=== PATIENT | female | born 1940 | race Caucasian/White ===

== ENCOUNTER 2017-02-14 13:41 | Emergency (ER) | payer MEDICARE, OTHER ==
[2017-02-14 13:49] VITALS: BP 139/77; PULSE 75; RESP 20; TEMP 97.8; O2SAT 97
--- NOTE | 2017-02-14 14:27 | C.PDOC ---
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 PS HAS CHRONIC KNEE PAIN, LOST BALANCE AND FELL ONTO L SIDE. NO LOC. AMBUL ON SCENE. 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 DENIES TOOTH LOOSE EXAM MILD DIST HEENT +LIP LAC MID UPPER LEFT, NO INVOLVE BEBA BORDER NO ACTIVE BLEED; NO TOOTH FX, SUBLUX, MALOCCLUSION NECK LIMITED ROM DUE TO PAIN; L PARACERV SPASM; NO LS TEND EXT LIMITED ROM L SHOULDER NO DEFORM; DIFFUSE TEND NEURO INTACT - HPI Time Seen by Provider: 02/14/17 14:02 Chief Complaint (Nursing): Abnormal Skin Integrity History Per: Patient History/Exam Limitations: no limitations Injury Occurred (Timing): Just Before Arrival Location Of Injury: Left: Mouth (upper lip laceration ), Neck, Shoulder, Anterior: Mouth Recent travel outside of the [place]: No Past Medical History Reviewed: Historical Data, Nursing Documentation, Vital Signs Vital Signs: Last Vital Signs Temp 97.8 F 02/14/17 13:48 Pulse 75 02/14/17 13:48 Resp 20 02/14/17 13:48 BP 139/77 02/14/17 13:48 Pulse Ox 97 02/14/17 15:26 - Medical History PMH: Arthritis, Diabetes, HTN, Hypothyroidism, Osteoporosis, Rheumatoid Arthritis Surgical History: Appendectomy, Cholecystectomy - [facility] Procedures INJECT/INFUSE NEC (06/02/14) Family History: States: Unknown Family Hx - Social History Hx Tobacco Use: No Hx Alcohol Use: No Hx Substance Use: No - Immunization History Hx Tetanus Toxoid Vaccination: No Hx Influenza Vaccination: No Hx Pneumococcal Vaccination: No Review Of Systems Except As Marked, All Systems Reviewed And Found Negative. Constitutional: Negative for: Fever, Chills Respiratory: Negative for: Cough Gastrointestinal: Negative for: Nausea, Vomiting Musculoskeletal: Positive for: Neck Pain (left sided ), Shoulder Pain (left ) Skin: Positive for: Other (upper lip laceration ). Negative for: Rash Neurological: Negative for: Weakness, Numbness, Headache, Dizziness Physical Exam - Physical Exam Appears: Non-toxic, No Acute Distress Skin: Warm, Dry Head: Normacephalic, Laceration (+LIP LAC MID UPPER LEFT, NO INVOLVE BEBA BORDER NO ACTIVE BLEED; NO TOOTH FX, SUBLUX, MALOCCLUSION) Eye(s): bilateral: Normal Inspection, PERRL, EOMI Ear(s): Bilateral: Normal Nose: Normal Oral Mucosa: Moist Tongue: Normal Appearing Neck: Decreased ROM (DUE TO PAIN ), No Midline Cervical Tenderness, Paracervical Tenderness (LEFT SIDED SPASM ), No Step Off Deformity, Supple Chest: Symmetrical Cardiovascular: Rhythm Regular Respiratory: Normal Breath Sounds, No Rales, No Rhonchi, No Wheezing Gastrointestinal/Abdominal: Soft, No Tenderness Back: No Vertebral Tenderness Extremity: Tenderness (DIFFUSE, LEFT SHOULDER), Capillary Refill (< 2 SEC. ), No Deformity, No Swelling Extremity: Left: Limited ROM To Joint (SHOULDER) Pulses: Left Radial: Normal, Right Radial: Normal Neurological/Psych: Oriented x3, Normal Motor, Normal Sensation, Other (NEURO INTACT) ED Course And Treatment O2 Sat by Pulse Oximetry: 97 (RA) Pulse Ox Interpretation: Normal - Other Rad CERVICAL SPINE X-RAY X-Ray: Interpreted by Me Interpretation: NEGATIVE LEFT SHOULDER X-RAY X-Ray: Interpreted by Me Interpretation: NEGATIVE Laceration - Laceration Repair No standard instances Wound Length (In cm): 1 Description Of Wound: Irregular, Contused Tissue Anesthesia: Lidocaine 1% Wound Examination: Irrigated With Saline, No FB With Wound Exploration Wound Closure: Suture (6.0 prolene) Suture Technique And Material Used: Interrupted Wound Complexity: Simple (1) Disposition Counseled Patient/Family Regarding: Studies Performed, Diagnosis, Need For Followup, Rx Given - Disposition Referrals: Pathology Laboratory Director Service [Outside] [facility] [Provider Group] Disposition: HOME/ ROUTINE Disposition Time: 16:05 Condition: IMPROVED Prescriptions: Amoxicillin [Amoxil 500 mg Cap] 500 mg PO BID #14 cap Instructions: Laceration (ED), Shoulder Sprain (ED), Cervical Strain (DC) Print Language: FAROESE - Clinical Impression Clinical Impression: Shoulder sprain, Neck strain, Lip laceration, Fall - Scribe Statement The provider has reviewed the documentation as recorded by the Jorje Lo Provider Attestation: All medical record entries made by the Froylanibjillian were at my direction and personally dictated by me. I have reviewed the chart and agree that the record accurately reflects my personal performance of the history, physical exam, medical decision making, and the department course for this patient. I have also personally directed, reviewed, and agree with the discharge instructions and disposition.
[2017-02-14] MEDS ORDERED: Lidocaine 1% Inj (20ml) INFIL ONE (15:26)
[2017-02-14] MEDS ORDERED: Lidocaine 1% Inj (20ml) ONE (15:28)
--- NOTE | 2017-02-14 15:45 | RAD ---
PROCEDURE: Radiographs of the Left Shoulder HISTORY: TRAUMA COMPARISON: No prior. FINDINGS: BONES: Normal. No fracture. JOINTS: Glenohumeral articulation is unremarkable. There is mild acromioclavicular degenerative arthritis. SOFT TISSUES: Normal. OTHER FINDINGS: None. IMPRESSION: Mild acromioclavicular degenerative arthritis. Otherwise unremarkable.
--- NOTE | 2017-02-14 15:47 | RAD ---
PROCEDURE: Cervical Spine Radiographs. HISTORY: Pain. COMPARISON: None. FINDINGS: BONES: The vertebral bodies are maintained in height. Normal vertebral alignment is maintained. The atlantoaxial articulation and odontoid process appear intact. DISC SPACES: There is marked narrowing of the C5-6 intervertebral disc space with osteophyte formation about the disc space, consistent with degenerative disc disease. The remaining disc spaces are maintained in height. SOFT TISSUES: Normal. No prevertebral soft tissue swelling. OTHER FINDINGS: None. IMPRESSION: Degenerative disc disease at C5-6. No evidence of fracture or dislocation.
== END 2017-02-14 16:23 | disposition home or self-care (01) ==
LOC: C.ER 13:41
DX: S01.511A Laceration without foreign body of lip, initial encounter (principal); S43.402A Unspecified sprain of left shoulder joint, initial encounter; S16.1XXA Strain of muscle, fascia and tendon at neck level, initial encounter; W18.30XA Fall on same level, unspecified, initial encounter

== ENCOUNTER 2017-02-21 08:40 | Emergency (ER) | payer MEDICARE, OTHER ==
[2017-02-21 08:48] VITALS: BP 120/80; TEMP 97.5
[2017-02-21 09:22] VITALS: BMI 25.0
[2017-02-21] MEDS ORDERED: Bacitracin 500 Units/gm Oint Foilpak UD TOP ONE (09:33)
--- NOTE | 2017-02-21 09:37 | C.PDOC ---
Time Seen by Provider: 02/21/17 09:27 Chief Complaint (Nursing): Suture/Staple Removal History Per: Patient Onset/Duration Of Symptoms: Days Ago (7), Laceration Current Symptoms Are (Timing): Better Location Of Injury: Anterior: Face (Upper lip) Quality Of Symptoms: denies: Painful, Swollen, Draining Severity: Mild Additional History Per: Prior Records Past Medical History Reviewed: Historical Data, Nursing Documentation, Vital Signs Vital Signs: Last Vital Signs Temp 97.5 F L 02/21/17 08:47 Pulse 74 02/21/17 08:47 Resp 20 02/21/17 08:47 BP 120/80 02/21/17 08:47 Pulse Ox 97 02/21/17 08:47 - Medical History PMH: Arthritis, Diabetes, HTN, Hypothyroidism, Osteoporosis, Rheumatoid Arthritis Surgical History: Appendectomy, Cholecystectomy - [facility] Procedures INJECT/INFUSE NEC (06/02/14) Family History: States: Unknown Family Hx - Social History Hx Tobacco Use: No Hx Alcohol Use: No Hx Substance Use: No - Immunization History Hx Tetanus Toxoid Vaccination: No Hx Influenza Vaccination: No Hx Pneumococcal Vaccination: No Review Of Systems Except As Marked, All Systems Reviewed And Found Negative. Constitutional: Negative for: Fever, Weakness ENT: Negative for: Mouth Pain, Mouth Swelling Cardiovascular: Negative for: Chest Pain Respiratory: Negative for: Shortness of Breath Gastrointestinal: Negative for: Vomiting, Abdominal Pain Skin: Negative for: Rash Neurological: Negative for: Weakness, Numbness, Seizures, Altered Mental Status Physical Exam - Physical Exam Appears: Non-toxic, No Acute Distress Skin: Normal Color, Warm, Dry Head: Atraumatic Eye(s): bilateral: PERRL, EOMI Oral Mucosa: Moist, No Drooling, No Trismus Lips: Laceration (Healed small, on upper lip, closed with 1 suture) Neck: Normal ROM, Supple Extremity: Normal ROM, No Deformity Neurological/Psych: Oriented x3, Normal Speech, Normal Motor, Normal Sensation ED Course And Treatment O2 Sat by Pulse Oximetry: 97 Pulse Ox Interpretation: Normal Progress Note: Suture was removed without any difficulty. Reassessment Condition: Improved Disposition Counseled Patient/Family Regarding: Diagnosis, Need For Followup - Disposition Referrals: Kolby Montiel MD [Primary Care Provider] - Disposition: HOME/ ROUTINE Disposition Time: 09:39 Condition: IMPROVED Additional Instructions: Follow up with your doctor. Return to the ER if you develop redness, swelling, pus drainage, worsening of symptoms or if you have any other concerns. Instructions: Stitches Removal (ED) Print Language: ARABIC - Clinical Impression Clinical Impression: Removal of suture
[2017-02-21 09:47] VITALS: PULSE 75; RESP 18; O2SAT 98
== END 2017-02-21 09:48 | disposition home or self-care (01) ==
LOC: SUPCPDRO 08:40 → C.ER 08:40
DX: Z48.02 Encounter for removal of sutures (principal)

== ENCOUNTER 2019-01-18 10:12 | Outpatient (CLI) | payer MEDICARE, MEDICAID | END 2019-01-18 10:13 | disposition home or self-care (01) | LOC: C.USIC 10:12 ==